=== PATIENT | male | born 1960 | race African-American/Black ===

== ENCOUNTER 2022-03-07 06:59 | Day surgery (SDC) | payer OTHER ==
[~2022-03-07] VITALS: Ht 175.3 cm; Wt 83.9 kg
[2022-03-07] MEDS ORDERED: fentaNYL CITRATE/PF 100 MCG/2 ML AMP ONE (09:32)
[2022-03-07] MEDS ORDERED: MIDAZOLAM HCL 5 MG/5 ML VIAL ONE (09:33)
[2022-03-07 13:42] VITALS: BP_SYST 137
== END 2022-03-07 13:42 | disposition home or self-care (01) ==
LOC: SDS 06:59 → SMU 07:03 → SDS 13:42
PROVIDERS: ATTEND Internal Medicine
DX: Z12.11 Encounter for screening for malignant neoplasm of colon (principal); K62.1 Rectal polyp; K64.8 Other hemorrhoids; Z20.822 Contact with and (suspected) exposure to COVID-19; Z79.899 Other long term (current) drug therapy
CPT/HCPCS: 36415; 45385; 88305; 99152; 99153; U0003; G0378; J2250; J3010